=== PATIENT | male | born 1970 | race Caucasian/White ===

== ENCOUNTER 2016-08-03 02:01 | Emergency (ER) | payer OTHER, MEDICARE ==
[2016-08-03] MEDS ORDERED: IPRATROPIUM/ALBUTEROL 0.5-2.5 MG/3 ML AMPUL NEB ONE (02:27)
[2016-08-03] MEDS ORDERED: ALBUTEROL SULFATE 0.083% NEB 2.5 MG/3 ML AMPUL NEB ONE (02:27)
[2016-08-03] MEDS ORDERED: IPRATROPIUM BROMIDE 0.02% NEB 0.5 MG/2.5 ML AMPUL NEB ONE (02:27)
[2016-08-03] MEDS ORDERED: PREDNISONE 20 MG TABLET PO ONE (02:27)
[2016-08-03] MEDS ORDERED: PREDNISONE 20 MG TABLET ONE (02:28)
--- NOTE | 2016-08-03 02:33 | ER Document Report ---
ED General - General Chief Complaint: Chest Congestion Stated Complaint: Chest Congestion - HPI Patient complains to provider of: cough chest congestion Notes: Patient with a smoking history coming in for greater than 1 month of cough congestion. Patient denies fevers chills nausea vomiting night sweats weight loss. Patient states intermittent shortness of breath. Denies any recent follow-up chest x-ray her primary care - Related Data Allergies/Adverse Reactions: No Known Allergies Allergy (Unverified 04/29/11 15:49) Past Medical History - Social History Smoking Status: Unknown if Ever Smoked Family History: None - Past Medical History Cardiac Medical History: Denies: Hx Coronary Artery Disease, Hx Heart Attack, Hx Hypertension Pulmonary Medical History: Denies: Hx Asthma, Hx Bronchitis, Hx COPD, Hx Pneumonia Neurological Medical History: Denies: Hx Cerebrovascular Accident, Hx Seizures Musculoskeltal Medical History: Denies Hx Arthritis Surgical Hx: Negative Past Surgical History: Denies: Hx Pacemaker - Immunizations Hx Diphtheria, Pertussis, Tetanus Vaccination: Yes Review of Systems - Review of Systems Constitutional: No symptoms reported EENT: No symptoms reported Cardiovascular: No symptoms reported Respiratory: Cough, Short of breath, Wheezing Gastrointestinal: No symptoms reported Genitourinary: No symptoms reported Male Genitourinary: No symptoms reported Musculoskeletal: No symptoms reported Skin: No symptoms reported Hematologic/Lymphatic: No symptoms reported Neurological/Psychological: No symptoms reported -: Yes All other systems reviewed and negative Physical Exam - Vital signs Vitals: Temp Pulse Resp BP Pulse Ox 97.6 F 68 18 119/76 99 08/03/16 02:12 08/03/16 02:12 08/03/16 02:12 08/03/16 02:12 08/03/16 02:12 Interpretation: Normal - General General appearance: Appears well, Alert - HEENT Head: Normocephalic, Atraumatic Eyes: Normal Pupils: PERRL - Respiratory Respiratory status: No respiratory distress Chest status: Nontender Breath sounds: Rhonchi, Wheezing Chest palpation: Normal - Cardiovascular Rhythm: Regular Heart sounds: Normal auscultation Murmur: No - Abdominal Inspection: Normal Distension: No distension Bowel sounds: Normal Tenderness: Nontender Organomegaly: No organomegaly - Back Back: Normal, Nontender - Extremities General upper extremity: Normal inspection, Nontender, Normal color, Normal ROM , Normal temperature General lower extremity: Normal inspection, Nontender, Normal color, Normal ROM , Normal temperature, Normal weight bearing. No: Daniel's sign - Neurological Neuro grossly intact: Yes Cognition: Normal Orientation: AAOx4 Vinicius Coma Scale Eye Opening: Spontaneous Vinicius Coma Scale Verbal: Oriented Vinicius Coma Scale Motor: Obeys Commands Vinicius Coma Scale Total: 15 Speech: Normal Motor strength normal: LUE, RUE, LLE, RLE Sensory: Normal - Psychological Associated symptoms: Normal affect, Normal mood - Skin Skin Temperature: Warm Skin Moisture: Dry Skin Color: Normal Course - Re-evaluation Re-evalutation: 08/03/16 04:38 Patient's lung sounds improved after breathing treatments. Chest x-ray does not show any acute pathology. Initial read did show state acute pathology however discussed with the radiologist this was a dictation error patient has no acute pathology on his chest x-ray. Dementia be made. Patient will be discharged home patient agrees with plan steroids bronchodilators and follow-up with the [facility]. - Vital Signs Vital signs: Temp Pulse Resp BP Pulse Ox 97.6 F 68 18 119/76 99 08/03/16 02:12 08/03/16 02:12 08/03/16 02:12 08/03/16 02:12 08/03/16 02:12 Discharge - Discharge Clinical Impression: Cough, Bronchitis Condition: Good Disposition: HOME, SELF-CARE Instructions: Bronchitis With Bronchospasm (Wheezing) ([facility]), Chronic Obstructive Lung Disease ([facility]), Stop Smoking ([facility]) Additional Instructions: Please take medication as prescribed. Please use the inhaler that we gave you here in ER 2 puffs every 4 hours for the next 5 days while you're awake. After that 5 days you may use as needed. Please follow-up to primary care physician. Return to ER symptoms worsen. Prescriptions: Albuterol Sulfate [Proair HFA] 1 - 2 puff IH Q4 PRN #1 inhaler PRN Reason: Prednisone [Deltasone] 60 mg PO DAILY 5 Days Forms: Smoking Cessation Education
[2016-08-03] MEDS ORDERED: ALBUTEROL SULFATE HFA (90 MCG/PUFF) 8 GM MDI (1 MDI/ER DISP) IH ONE (04:35)
[2016-08-03 04:38] VITALS: BP 105/67
== END 2016-08-03 04:37 | disposition home or self-care (01) ==
LOC: ER 02:01
DX: J40 Bronchitis, not specified as acute or chronic (principal); R05 Cough; R09.89 Other specified symptoms and signs involving the circulatory and respiratory systems; Z87.891 Personal history of nicotine dependence; R06.02 Shortness of breath; R06.2 Wheezing
CPT/HCPCS: 94640; 99283; 71020; J7512; J3490 ×2

== ENCOUNTER 2017-02-13 10:05 | Day surgery (SDC) | payer OTHER, MEDICARE ==
[~2017-02-13 10:05] MED LIST: RINGERS SOLUTION,LACTATED 1,000 ML IV PRN
[2017-02-13] MEDS ORDERED: EPINEPHRINE INJ 30 MG/30 ML VIAL ONE (10:25)
[2017-02-13] MEDS ORDERED: MIDAZOLAM 2 MG/2 ML INJ ONE (10:25)
[2017-02-13] MEDS ORDERED: PROPOFOL INJ 200 MG/20 ML VIAL IV ONE (10:25)
[2017-02-13] MEDS ORDERED: FENTANYL CITRATE INJ/PF 100 MCG/2 ML AMPUL ONE (10:25)
[2017-02-13] MEDS ORDERED: LIDOCAINE 2%/EPINEPHRINE INJ 20 ML VIAL ONE (10:26)
[2017-02-13] MEDS ORDERED: FENTANYL CITRATE INJ/PF 100 MCG/2 ML AMPUL IV PRN ×3 (10:59)
[2017-02-13] MEDS ORDERED: DIPHENHYDRAMINE HCL 50 MG/ML VIAL IV PRN (10:59)
[2017-02-13] MEDS ORDERED: PROMETHAZINE HCL INJ 25 MG/1 ML VIAL IV PRN ×2 (10:59)
[2017-02-13] MEDS ORDERED: OXYCODONE-ACETAMINOPHEN 5-325 MG TABLET PO PRN ×2 (10:59)
[2017-02-13] MEDS ORDERED: MORPHINE SULFATE 10 MG/ML INJ IV PRN (10:59)
[2017-02-13] MEDS ORDERED: MEPERIDINE HCL/PF INJ 25 MG/1 ML DISP.SYRIN IV PRN (10:59)
[2017-02-13] MEDS ORDERED: ONDANSETRON HCL INJ/PF 4 MG/2 ML SDV IV PRN (13:08)
[2017-02-13] MEDS ORDERED: ACETAMINOPHEN 325 MG TABLET PO PRN (13:08)
[2017-02-13] MEDS ORDERED: ACETAMINOPHEN 325 MG TABLET ONE (13:08)
--- NOTE | 2017-02-13 13:09 | OPERATIVE REPORT E ---
Operative Report NAME: LINDA VILLARREAL : 1970 AGE: 46Y DATE OF SURGERY: 02/13/2017 ROOM: PREOPERATIVE DIAGNOSIS: Carcinoma of right larynx. 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 OPERATION PERFORMED: Direct laryngoscopy with suspension with microscope with multiple biopsies and photographs. SURGEON: STEW BROWNING M.D. INFORMATION SYSTEMS AUDITOR: None. ANESTHESIA: General, Dr. Krishnamurthy, with Philomena Bucio CRNA. PREOPERATIVE NOTE: This is a 46-year-old man who is an ex [employer] who has had a chronic cough and hoarseness for 7-1/2 years. 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 He is a cigarette smoker. He has a weak cough. He has a weak, somewhat gravely voice. He has no dysphagia or odynophagia. He was seen at [facility] on 01/07/2017 and a fiberoptic examination revealed multiple warty-looking growths over the right true vocal cord beginning at the vocal process of the right arytenoid and advancing forwards along the right true vocal cord up to but not onto the anterior commissure. It does not involve the ventricle as far as can be seen but there appears to be a second lesion attached to the right aryepiglottic fold. This appears to be a totally separate island. 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 This might be an HPV-related condition rather than a standard squamous cell carcinoma. However, direct endoscopy with biopsy was clearly indicated. The patient was seen and identified in the preop holding area. Discussion took place about postop care. DESCRIPTION OF PROCEDURE: The patient was then taken back to the operating room, placed in supine position, general anesthesia was induced, and a small endotracheal tube was placed. The patient was appropriately positioned into the Marissa position and draped. A time out then took place and all issues relating to the patient's identity, his positioning onto the table, the procedures to be performed, and the risks attendant thereto were discussed and there were no matters arising. A tracheostomy set was brought into the room but was not opened. Next, the patient was carefully draped. The oral exam was performed. He has rather a tight jaw. No loose teeth were identified. Bimanual palpation was unrevealing. Next, a gum shield was placed over the upper dentition. The Jako laryngoscope was then taken and advanced. Because of the tightness of the patient's oral geometry, visualization of the larynx with this instrument was quite difficult. It required lubrication of the inferior aspect of the scope with K-Y Jelly to allow it to slide over the gum shield better. Eventually a good view of the larynx was obtained. There were no additional lesions in the vallecula, on the epiglottis or on the left-hand side. The endotracheal tube was then manipulated somewhat to the right to allow the scope to enter the larynx. The [employer] suspension apparatus was then connected and utilized to attach the equipment to the [place] stand. A good view was finally obtained and then photographs were obtained using a 0-degree functional endoscopic sinus surgery Page feliciano in order to demonstrate the lesions. It seemed clear that the lesion involved the entire right true vocal cord from the vocal process forwards to the arytenoid cartilage. There was some rolling over of the lesion inferiorly below the medial edge of the right true vocal cord. The second lesion on the aryepiglottic fold was clearly demonstrated. The Zeiss operating microscope was then brought into the field with a 400-mm objective. The illumination was maintained using the Jako laryngoscope. The lesion on the aryepiglottic fold appeared to be almost pedunculated. It was, therefore, grasped with cup forceps and distracted in a medial direction, and angled Kleinsasser scissors were used to transect the stalk and then this material was handed off to the circulating nurse for transfer to the pathology department. Essentially the same technique was used on the right true vocal cord. The bulk of the lesion appeared to be placed more posteriorly and this was grasped with the cup forceps and distracted medially and then was transected using the Kleinsasser scissors. Additional pieces were removed just using cup forceps. All of this material was first of all placed on saline-soaked Telfa and then this was handed off to the circulating nurse and was finally placed on formaldehyde. Bleeding was not troublesome. Use was made of a single neuropatty soaked in 1:100,000 topical epinephrine. Following this the airway was suctioned. There had been some blood that had passed down towards the balloon of the endotracheal tube and this was all removed. There did not appear to be active bleeding from the biopsy sites. Postoperative photographs were obtained using the 0-degree Page feliciano and these were all printed. The procedure was then terminated and the anesthesia was reversed, and the Jako laryngoscope was taken out, the gum shield was removed, and the patient was extubated, light, and transferred to PACU in good condition, having tolerated the procedure well. He received 12 mg of Decadron intravenously. The biopsies were all sent down to pathology. Telephone conversation has taken place between [facility] and Dr. Hernandez in pathology to alert her to the idea that some of this material should be submitted for viral identifications if at all possible. The patient will be seen in followup at [facility] in the next week. There were no complications. No untoward events. Estimated blood loss was under 5 mL. DICTATING PHYSICIAN: STEW BROWNING M.D. [id number] PHY#: [id number] ID: [id number] JOB#: [id number] ACCT: [id number] cc:STEW BROWNING M.D. >
[2017-02-13 13:51] VITALS: BP 116/75
[2017-02-15] MEDS ORDERED: SUCCINYLCHOLINE CHLORIDE INJ 200 MG/10 ML VIAL ONE (08:26)
[2017-02-15] MEDS ORDERED: DEXAMETHASONE SOD PHOSPHATE INJ 4 MG/1 ML VIAL ONE (08:26)
== END 2017-02-13 13:35 | disposition home or self-care (01) ==
LOC: OROUT 10:05
PROVIDERS: ATTEND Otolaryngology
PROC: 0CBR8ZX Excision of Epiglottis, Via Natural or Artificial Opening Endoscopic, Diagnostic (ICD-10-PCS; 2017-02-13)
PROC: 0CBT8ZX Excision of Right Vocal Cord, Via Natural or Artificial Opening Endoscopic, Diagnostic (ICD-10-PCS; principal; 2017-02-13 13:00)
DX: C32.0 Malignant neoplasm of glottis (principal); E78.00 Pure hypercholesterolemia, unspecified; F32.9 Major depressive disorder, single episode, unspecified; F41.9 Anxiety disorder, unspecified; F17.210 Nicotine dependence, cigarettes, uncomplicated; Z79.899 Other long term (current) drug therapy
CPT/HCPCS: 88305 ×2; 31535; J2250; J0171; J3010; J2704; 320; J1100; J3490

== ENCOUNTER → 2019-01-07 | Outpatient (CLI) | payer OTHER | LOC: OD 09:27 | PROVIDERS: ATTEND Otolaryngology | DX: J30.9 Allergic rhinitis, unspecified (principal) | CPT/HCPCS: 36415; 82785; 86003 ==

== ENCOUNTER 2019-02-07 10:44 | Day surgery (SDC) | payer MEDICARE, OTHER ==
[~2019-02-07 10:44] MED LIST changes: +DEXAMETHASONE SOD PHOSPHATE INJ 4 MG/1 ML VIAL ONE; +DISPOSABLE IV ONE; +DISPOSABLE IV PRN; +FENTANYL CITRATE INJ/PF 100 MCG/2 ML AMPUL ONE; +GLYCOPYRROLATE 1 MG/5 ML VIAL ONE; +LIDOCAINE 2% INJ-PF (20 MG/ML) 2 ML AMPUL ONE; +MIDAZOLAM 2 MG/2 ML INJ ONE; +NEOSTIGMINE METHYLSULFATE 10 MG/10 ML VIAL ONE; +ONDANSETRON HCL INJ/PF 4 MG/2 ML SDV ONE; +PROPOFOL INJ 200 MG/20 ML VIAL IV ONE; -RINGERS SOLUTION,LACTATED 1,000 ML IV PRN; +ROCURONIUM BROMIDE INJ 50 MG/5 ML VIAL IV ONE; +[UNRECOGNIZED DRUG - OTHER] IV ONE; +[UNRECOGNIZED DRUG - OTHER] IV PRN
[2019-02-07] MEDS ORDERED: FENTANYL CITRATE INJ/PF 250 MCG/5 ML AMPULE ONE (13:29)
[2019-02-07] MEDS ORDERED: MIDAZOLAM 2 MG/2 ML INJ ONE (13:29)
[2019-02-07] MEDS ORDERED: PROPOFOL INJ 200 MG/20 ML VIAL IV ONE (13:29)
[2019-02-07] MEDS ORDERED: OXYMETAZOLINE HCL 0.05% NASAL SPRAY 15 ML BOTTLE ONE (13:44)
[2019-02-07] MEDS ORDERED: HYDROMORPHONE HCL INJ/PF 2 MG/ML AMPULE ONE (16:41)
[2019-02-07] MEDS ORDERED: FENTANYL CITRATE INJ/PF 100 MCG/2 ML AMPUL ONE (16:43)
[2019-02-07] MEDS ORDERED: DIPHENHYDRAMINE HCL 50 MG/ML VIAL IV PRN (17:18)
[2019-02-07] MEDS ORDERED: MORPHINE SULFATE 10 MG/ML INJ IV PRN (17:18)
[2019-02-07] MEDS ORDERED: ONDANSETRON HCL INJ/PF 4 MG/2 ML SDV IV PRN ×2 (17:18→17:25)
[2019-02-07] MEDS ORDERED: FENTANYL CITRATE INJ/PF 100 MCG/2 ML AMPUL IV PRN ×3 (17:18)
[2019-02-07] MEDS ORDERED: MEPERIDINE HCL/PF INJ 25 MG/1 ML DISP.SYRIN IV PRN (17:18)
[2019-02-07] MEDS ORDERED: PROMETHAZINE HCL INJ 25 MG/1 ML VIAL IV PRN ×2 (17:18)
[2019-02-07] MEDS ORDERED: OXYCODONE-ACETAMINOPHEN 5-325 MG TABLET PO PRN ×2 (17:18)
[2019-02-07] MEDS ORDERED: ONDANSETRON HCL INJ/PF 4 MG/2 ML SDV ONE (17:21)
[2019-02-07] MEDS ORDERED: HYDROCOD/ACETAMIN 7.5-325 MG/15 ML ORAL SOLN UDCUP PO PRN (17:25)
[2019-02-07 19:09] VITALS: BP 111/74
--- NOTE | 2019-02-23 01:00 | OPERATIVE REPORT E ---
Operative Report NAME: LINDA VILLARREAL : 1970 AGE: 48Y DATE OF SURGERY: 02/07/2019 ROOM: PREOPERATIVE DIAGNOSIS: 1. RECURRENT RESPIRATORY PAPILOMATOSIS. 2. CHRONIC DYSPHONIA. 3. SEVERE ANXIETY. POSTOPERATIVE DIAGNOSIS: 1. RECURRENT RESPIRATORY PAPILOMATOSIS. 2. CHRONIC DYSPHONIA. 3. SEVERE ANXIETY. OPERATION: 1. Microscopic direct laryngoscopy with surgical removal of laryngeal tumors. 2. Multiple sites of laryngeal injections of chemotherapeutic agent "cidofovir." 3. Intraoperative flexible fiberoptic bronchoscopy performed via/transendotracheal tube approach. SURGEON: GIANNA MONROE D.O. ANESTHESIA: General endotracheal tube. ANESTHESIA STAFF: Saima Mendoza CRNA. ESTIMATED BLOOD LOSS: 5 mL. FLUIDS: 1900 mL. COMPLICATIONS: None. DRAINS: None. SPONGE COUNT: Verified. MATERIALS FORWARDED SPECIMEN: Numerous pieces of laryngeal tumor tissue with request for rule out of laryngeal cancer, as well as HPV typing to include 6, 11, 16, 18, 31, and 33. FINDINGS: 1. There was extensive laryngeal recurrent respiratory papillomatosis disease/tissue burden extending from the supraglottic, glottic, and subglottic distribution, primarily from the right side with near complete replacement of the right true vocal fold. 2. Subglottic extension was extensive. 3. Upon flexible transendotracheal bronchoscopy there was no obvious tracheal, inocencia, or left or right main stem tracheal involvement of RRP. INDICATIONS: This is a 48-year-old white male patient who has been seen, evaluated, and followed in the [facility] office. The patient was originally seen and cared for by [facility] surgeons, who were staffing the [facility] office. The patient is with a history of severe anxiety and his area of travel consists of a 10 mile circumferential area around [place], [place]. The patient underwent prior laryngeal surgery with one of the [facility] ENT surgeons with RRP/recurrent respiratory papillomatosis, tumor burden being noted with HPV typing being requested and completed with HPV type 6 and 11 being identified. The patient was then evaluated by myself with RRP findings being noted upon office based endoscopy. The patient was encouraged to consider referral to [facility] Laryngology Department with consult being placed and efforts to find friends or family who would be able to assist the patient in getting to [facility] for evaluation and management. However, in working with the patient he reported that there was no possible way he would be able to travel outside of the local area due to his severe anxiety. After extensive discussion arrangements were made for the patient to undergo another microscopic direct laryngoscopy at [facility] with tumor removal via microscopic direct laryngoscopy, HPV typing would again be requested and tumor sent for rule out of laryngeal cancer, and cidofovir injections would be performed. All of which he voiced an understanding of and was in agreement with. The risk and complications of all the procedures were discussed in detail with the patient. He voiced an understanding of the described surgical plan, agreed to proceed, and consent was obtained. PROCEDURE: The patient was taken to the main operating room and was placed on the operating room table in the supine position. Appropriate monitors were placed. Using mask and IV access general anesthesia was induced. The patient was transorally intubated without difficulty and the Anesthesia staff reported that they saw extensive laryngeal tumor present. The patient next had his lips, teeth, tongue, and gum evaluated with no gross defect being noted. There was a mouth guard placed over the upper teeth. The rigid laryngoscope was next introduced and placed into position and the patient was placed into indirect suspension. The Page feliciano was used for medical photography. At this point the microscope was brought into positive and extensive laryngeal tumor was removed and sent for pathology evaluation as noted above. At this point the laryngeal end worker microdebrider system was set up and at a setting of 500 RPM the remaining laryngeal RRP tumor burden was removed with suction debridement. There were 2 areas of brisk bright red bleeding at the right true vocal fold/ tumor area which were controlled with Afrin soaked neuro patties and laryngeal cautery. At this point there was reasonable resection of the laryngeal RRP tumor burden. The findings were as noted above. At this point cidofovir at a concentration of 7.5 mg/mL were injected throughout the right supraglottic, glottic, and subglottic area. After the resection of the RRP tumor burden there was additional medical photography completed with a rigid Page feliciano. The patient was then released from indirect suspension and the rigid laryngoscope was removed. There had been adequate hemostasis noted. The mouth guard was removed and there was no damaged to the lips, teeth, tongue, gums, or inside of the mouth noted. At this point the patient underwent flexible fiberoptic bronchoscopy via the endotracheal tube with findings as noted above. The patient was then returned to the Anesthesia staff and was allowed to emerge from general anesthesia. The patient was extubated in the main operating room and was then transported to the postanesthesia recovery unit in stable condition. There were no complications. DICTATING PHYSICIAN: GIANNA MONROE D.O. [id number] PHY#: [id number] ID: [id number] JOB#: [id number] ACCT: [id number] cc:GIANNA MONROE D.O. >
== END 2019-02-07 18:55 | disposition home or self-care (01) ==
LOC: OROUT 10:44
PROVIDERS: ATTEND Otolaryngology
DX: D14.1 Benign neoplasm of larynx (principal); J38.3 Other diseases of vocal cords; F41.8 Other specified anxiety disorders; R49.0 Dysphonia; J30.9 Allergic rhinitis, unspecified; J33.9 Nasal polyp, unspecified; C32.0 Malignant neoplasm of glottis; J34.89 Other specified disorders of nose and nasal sinuses; J34.1 Cyst and mucocele of nose and nasal sinus; J34.3 Hypertrophy of nasal turbinates; E07.9 Disorder of thyroid, unspecified; E78.00 Pure hypercholesterolemia, unspecified; F17.210 Nicotine dependence, cigarettes, uncomplicated; K21.9 Gastro-esophageal reflux disease without esophagitis; R06.09 Other forms of dyspnea; Z79.899 Other long term (current) drug therapy
CPT/HCPCS: 88305 ×2; 00320; 31599; 31622; A4649; J2250; J3490 ×5; J1100; J3010; J2710; J2405; J2704; J0740; 320; J1170

== ENCOUNTER 2019-04-10 18:34 | Emergency (ER) | payer OTHER ==
--- NOTE | 2019-04-10 19:08 | ER Document Report ---
ED Medical Screen (RME) - General Stated Complaint: TOE LACERATION Time Seen by Provider: 04/10/19 19:02 Primary Care Provider: LIBBY RUSSELL [Primary Care Provider] - Follow up as needed Mode of Arrival: Ambulatory Information source: Patient Notes: Patient presents to the emergency department with a laceration to his left great toe. Patient reports he was cutting with an ax when he hit his foot. He reports he was wearing shoes. Reports tetanus is up-to-date. No active bleeding PE. Patient has a large laceration approximately 3 cm deep to his left great toe. Patient is able to flex extend his toe without problems good cap refill. I have greeted and performed a rapid initial assessment of this patient. A comprehensive ED assessment and evaluation of the patient, analysis of test results and completion of the medical decision making process will be conducted by additional ED providers. Dictation of this chart was performed using voice recognition software; therefore, there may be some unintended grammatical errors. TRAVEL OUTSIDE OF THE [place] IN LAST 30 DAYS: No - Related Data Allergies/Adverse Reactions: No Known Allergies Allergy (Verified 04/10/19 19:01) Past Medical History - Past Medical History Cardiac Medical History: Denies: Hx Coronary Artery Disease, Hx Heart Attack, Hx Hypertension Pulmonary Medical History: Denies: Hx Asthma - denies, Hx Bronchitis, Hx COPD, Hx Pneumonia Neurological Medical History: Denies: Hx Cerebrovascular Accident, Hx Seizures Musculoskeltal Medical History: Denies Hx Arthritis Past Surgical History: Denies: Hx Pacemaker - Immunizations Hx Diphtheria, Pertussis, Tetanus Vaccination: Yes Doctor's Discharge - Discharge [facility]errals: [facility] - Follow up as needed
--- NOTE | 2019-04-10 19:57 | RADIOLOGY REPORT (SQ) ---
EXAM DESCRIPTION: FOOT LEFT 2 VIEWS COMPLETED DATE/TIME: 04/10/2019 7:32 pm REASON FOR STUDY: laceration left great toe COMPARISON: None. EXAM PARAMETERS: NUMBER OF VIEWS: Two view. TECHNIQUE: AP and lateral radiographic images acquired of the left foot. LIMITATIONS: None. FINDINGS: MINERALIZATION: Normal. BONES: Intra-articular nondisplaced fracture of the lateral base of the distal phalanx of the left gr eat toe as well as the medial articular surface of the proximal phalanx. There is adjacent soft tissue swelling -laceration. No radiopaque foreign body. OTHER: No other significant finding. IMPRESSION: Intra-articular nondisplaced fracture of the lateral base of the distal phalanx of the left great toe as well as the medial articular surface of the proximal phalanx.There is adjacent soft tissue swelling -laceration. No radiopaque foreign body. TECHNICAL DOCUMENTATION: JOB ID: [id number] [place]-[id number] 2010 [employer]- All Rights Reserved Reading location - IP/workstation name: [email or web address]
[2019-04-10] MEDS ORDERED: LIDOCAINE 1% INJ-PF (10 MG/ML) 30 ML SDV INJ ONE (20:54)
--- NOTE | 2019-04-10 20:55 | ER Document Report ---
HPI - HPI Time Seen by Provider: 04/10/19 19:02 Pain Level: 2 Notes: Patient is an otherwise healthy 48-year-old male presenting to the emergency department with concern for laceration and pain to his left great toe. Patient reports he was cutting some dania with an ax when the accident through his shoe and into his foot. He reports Tdap within the last 5 years. There is mild bleeding at this time. - DERM Skin Color: Normal Past Medical History - General Information source: Patient - Social History Smoking Status: Current Every Day Smoker Chew tobacco use (# tins/day): No Drug Abuse: None Family History: None Patient has suicidal ideation: No Patient has homicidal ideation: No - Medical History Medical History: Negative Surgical Hx: Negative - Immunizations Hx Diphtheria, Pertussis, Tetanus Vaccination: Yes Hx Pneumococcal Vaccination: 04/19/14 Vertical Provider Document - CONSTITUTIONAL Notes: PHYSICAL EXAMINATION: GENERAL: Well-appearing, well-nourished and in no acute distress. HEAD: Atraumatic, normocephalic. EYES: Pupils equal round extraocular movements intact, conjunctiva are normal. ENT: Nares patent NECK: Normal range of motion LUNGS: No respiratory distress Musculoskeletal: Normal range of motion NEUROLOGICAL: Normal speech, normal gait. PSYCH: Normal mood, normal affect. SKIN: 3 cm laceration over the dorsal surface of the left great toe, this is deep, this does well approximate. There is mild active bleeding noted. Cap refill is less than 3 seconds and patient has normal motor and sensation distal to area of injury. - INFECTION CONTROL TRAVEL OUTSIDE OF THE [place] IN LAST 30 DAYS: No Course - Re-evaluation Re-evalutation: Foot X-Ray 04/10/19 19:06 IMPRESSION: Intra-articular nondisplaced fracture of the lateral base of the distal phalanx of the left great toe as well as the medial articular surface of the proximal phalanx.There is adjacent soft tissue swelling -laceration. No radiopaque foreign body. As outlined above and radiology reports patient does have a fracture to the distal phalanx as well as the proximal phalanx. There is no radiopaque foreign body. Wound will be copiously irrigated. Wound will then be loosely approximated to allow for drainage. Patient will be started on antibiotics. Patient will be instructed to follow-up with orthopedics as well. The patient's emergency department workup and current diagnosis were explained to the patient and or family. Follow-up instructions were provided. Medications if prescribed were discussed. Instructions for when to return to the emergency department including specific worrisome symptoms were discussed with the patient and/or family. Procedures - Laceration/Wound Repair Left great toe Wound length (cm): 3 Wound's Depth, Shape: Irregular. No: Nail-avulsed Laceration pre-procedure: Sterile PPE donned Anesthetic type: 1% Lidocaine Volume Anesthetic (mLs): 3 Wound explored: Clean Irrigated w/ Saline (mLs): 800 Wound Repaired With: Sutures Suture Size/Type: 4:0, Nylon Number of Sutures: 4 - Loosley approximated Post-procedure wound care: Sterile dressing applied Post-procedure NV exam normal: Yes Complications: No Discharge - Discharge Clinical Impression: Laceration Fracture of left great toe Qualifiers: Encounter type: initial encounter Fracture type: open Phalanx: unspecified phalanx Fracture alignment: nondisplaced Qualified Code(s): S92.405B - Nondisplaced unspecified fracture of left great toe, initial encounter for open fracture Condition: Stable Disposition: HOME, SELF-CARE Additional Instructions: Laceration Care Your laceration has been sutured to keep the skin edges aligned during healing. The time of suture removal depends on the nature and location of your cut. Please follow the care instructions the doctor has outlined for you and return for further care, according to the schedule you've been given. Keep the wound and dressing clean. Unless you were told otherwise, you may shower daily, blotting the wound dry with a clean, unused towel. At other times, If the dressing gets wet or blood soaked, remove it and blot the wound dry, then reapply a new dressing. Unless you were instructed otherwise, dressings should be changed at least daily. If any signs of infection occur (swelling, redness, increasing tenderness, red streaks, tender lumps in the armpit or groin above the laceration, or fever), see the doctor immediately. Fractured Toe You have fractured your toe. Although this fracture doesn't need a cast or splint, emergency evaluation was needed to assess the straightness of the bones and joints. Reduction ("setting") is necessary for toe fractures which are crooked or twisted. A toe fracture will heal in about three weeks. Usually, the fractured toe is taped to the next toe. The second toe acts as a moving splint to protect the broken one. Ice and elevation help during the first 48 hours. You may need crutches at first if walking is painful. When you begin walking, be careful NOT to do things that hurt. If weight bearing is not comfortable within a few days, you may require a special shoe, walking boot, or cast. Call the doctor or return at once if severe swelling, severe pain, or numbness develop in the toe, or if you suspect you may have re-injured it. Please call orthopedics tomorrow to schedule a follow-up appointment. Let them know you are seen in the emergency department and had an open fracture to your toe. Please return to the emergency department or your primary care provider in 10-14 days for suture removal. Please return earlier if you develop any signs of infection such as increased redness, swelling, foul-smelling drainage or fever. Prescriptions: Cephalexin [Cephalexin 500 MG Tablet] 1 tab PO BID #14 tablet Referrals: [facility] [Primary [facility] Provider] - Follow up as needed MILTON PARISI DO [ACTIVE STAFF] - Follow up as needed
[2019-04-10 23:14] VITALS: BP 119/77
== END 2019-04-10 22:55 | disposition home or self-care (01) ==
LOC: ER 18:34
DX: S92.415B Nondisplaced fracture of proximal phalanx of left great toe, initial encounter for open fracture (principal); S92.425B Nondisplaced fracture of distal phalanx of left great toe, initial encounter for open fracture; W27.0XXA Contact with workbench tool, initial encounter; Y93.89 Activity, other specified; F17.200 Nicotine dependence, unspecified, uncomplicated
CPT/HCPCS: 99282

== ENCOUNTER → 2019-10-05 | Outpatient (CLI) | payer OTHER ==
--- NOTE | 2019-10-05 11:25 | RADIOLOGY REPORT (SQ) ---
EXAM DESCRIPTION: CT SINUSES FOR ENT COMPLETED DATE/TIME: 10/05/2019 8:55 am REASON FOR STUDY: J32.9 CHRONIC SINUSITIS, UNSPECIFIED J32.9 CHRONIC SINUSITIS, UNSPECIFIED COMPARISON: None. TECHNIQUE: Noncontrast scanning through the paranasal sinuses using bone algorithm. Reconstructed MPR images reviewed. All images stored on PACS. All CT scanners at this facility use dose modulation, iterative reconstruction, and/or weight based d osing when appropriate to reduce radiation dose to as low as reasonably achievable (ALARA). [facility]: Dose Right [facility]: CareDose [facility]: Dose Right [facility]: Teradose 4D [facility]: [employer] RADIATION DOSE: 48mGy. LIMITATIONS: None. FINDINGS: Right sinuses and drainage pathways: Post-surgical changes: Old bony defect anterior wall right maxillary sinus axial image 114. Surgical widening of the right maxillary outlet.Resected middle turbinate. Frontal sinus: Circumferential mucous membrane thickening Frontoethmoidal Recess: Opacified/occluded by mucous membrane thickening on sagittal image 141-145 Anterior Ethmoid Sinuses: Opacified with mucous membrane thickening Posterior Ethmoid Sinuses: Mild mucous membrane thickening Sphenoid Sinus: Circumferential mucous membrane thickening Sphenoethmoidal Recess: Opacified with mucous membrane thickening Maxillary Sinus: Near completely opacified with mucous membrane thickening Ostiomeatal Complex: Occluded by mucous membrane thickening. Left Sinuses and Drainage Pathways: Post-Surgical Changes: Old bony defect anterior wall left maxillary sinus axial image 109 -114. Mattie gical widening of the left maxillary outlet. Resection of the anterior mid and posterior left ethmoi d septa. Resected middle turbinate. Frontal Sinus: Normal. Frontoethmoidal Recess: Mucous membrane thickening without occlusion Anterior Ethmoid Sinuses: Mucous membrane thickening Posterior Ethmoid Sinuses: Mucous membrane thickening Sphenoid Sinus: Circumferential mucous membrane thickening Sphenoethmoidal Recess: Opacified by mucous membrane thickening Maxillary Sinus: Mild circumferential mucous membrane thickening Ostiomeatal Complex: Narrowed by mucous membrane thickening on coronal image 107 Right Olfactory Fossa: No polyps. Left Olfactory Fossa: No polyps. Middle Turbinate Sugar Bullosa: No. Paradoxical Middle Turbinate: No. Atelectatic Uncinated Process: No. Frontal Sherry Cell Type I: Bilateral Frontal Sherry Cell Type II: Bilateral Interfrontal Sinus Septal Cell: None. Supra-Orbital Ethmoid: Bilateral Frontal Bullar Cell: None. Suprabullar Bullar Cell: None. Sphenoethmoidal (Onodi) Cell: Bilateral Pneumatization of the Anterior Clinoid Processes: No Hypoplastic Maxillary Sinus: None. Osteoneogenesis: Along the sphenoid sinus Bone Dehiscence:Anterior pérez bilateral maxillary sinus Nasal Cavity: Normal. Nasal Septum: Mild rightward nasal septal deviation Anatomic Variants: Right Vidian Canal: Normal. Left Vidian Canal: Normal. Advanced multiple dental caries IMPRESSION: CHRONIC SINUSITIS. TECHNICAL DOCUMENTATION: JOB ID: [id number] Quality ID # [id number]: Final reports with documentation of one or more dose reduction techniques (e.g., Au tomated exposure control, adjustment of the mA and/or kV according to patient size, use of iterative reconstruction technique) 2010 [email or web address]- All Rights Reserved Reading location - IP/workstation name: [id number]
== END ==
LOC: RAD 08:45
PROVIDERS: ATTEND Otolaryngology
DX: J32.9 Chronic sinusitis, unspecified (principal)
CPT/HCPCS: 70486

== ENCOUNTER 2020-04-09 07:57 | Day surgery (SDC) | payer OTHER ==
[~2020-04-09 07:57] MED LIST changes: -DEXAMETHASONE SOD PHOSPHATE INJ 4 MG/1 ML VIAL ONE; -DISPOSABLE IV ONE; -DISPOSABLE IV PRN; -FENTANYL CITRATE INJ/PF 100 MCG/2 ML AMPUL ONE; -GLYCOPYRROLATE 1 MG/5 ML VIAL ONE; +LACTATED RINGERS 1000 ML IV PRN; +LIDOCAINE 0.5% INJ-PF (5 MG/ML) 50 ML SDV SUBCUT PRN; -LIDOCAINE 2% INJ-PF (20 MG/ML) 2 ML AMPUL ONE; -MIDAZOLAM 2 MG/2 ML INJ ONE; -NEOSTIGMINE METHYLSULFATE 10 MG/10 ML VIAL ONE; -ONDANSETRON HCL INJ/PF 4 MG/2 ML SDV ONE; -PROPOFOL INJ 200 MG/20 ML VIAL IV ONE; -ROCURONIUM BROMIDE INJ 50 MG/5 ML VIAL IV ONE; -[UNRECOGNIZED DRUG - OTHER] IV ONE; -[UNRECOGNIZED DRUG - OTHER] IV PRN
[2020-04-09] MEDS ORDERED: DEXAMETHASONE SOD PHOSPHATE INJ 4 MG/1 ML VIAL ONE ×3 (08:18→11:18)
[2020-04-09] MEDS ORDERED: ROCURONIUM BROMIDE INJ 50 MG/5 ML VIAL IV ONE (08:18)
[2020-04-09] MEDS ORDERED: ONDANSETRON HCL INJ/PF 4 MG/2 ML SDV ONE (08:18)
[2020-04-09] MEDS ORDERED: NEOSTIGMINE METHYLSULFATE 10 MG/10 ML VIAL ONE (08:18)
[2020-04-09] MEDS ORDERED: KETOROLAC TROMETHAMINE 60 MG/2 ML SDV ONE (08:18)
[2020-04-09] MEDS ORDERED: LIDOCAINE 2% INJ-PF (20 MG/ML) 2 ML AMPUL ONE (08:18)
[2020-04-09] MEDS ORDERED: GLYCOPYRROLATE 1 MG/5 ML VIAL ONE (08:18)
[2020-04-09] MEDS ORDERED: MIDAZOLAM 2 MG/2 ML INJ ONE (11:09)
[2020-04-09] MEDS ORDERED: FENTANYL CITRATE INJ/PF 100 MCG/2 ML AMPUL ONE (11:09)
[2020-04-09] MEDS ORDERED: EPHEDRINE SULFATE INJ 50 MG/1 ML AMPULE ONE (11:09)
[2020-04-09] MEDS ORDERED: PROPOFOL INJ 200 MG/20 ML VIAL IV ONE (11:10)
[2020-04-09] MEDS ORDERED: OXYMETAZOLINE HCL 0.05% NASAL SPRAY 15 ML BOTTLE ONE (11:16)
[2020-04-09] MEDS ORDERED: DISPOSABLE IV PRN (11:29)
[2020-04-09] MEDS ORDERED: [UNRECOGNIZED DRUG - OTHER] IV PRN (11:29)
[2020-04-09] MEDS ORDERED: FENTANYL CITRATE INJ/PF 100 MCG/2 ML AMPUL IV PRN ×3 (12:33)
[2020-04-09] MEDS ORDERED: ONDANSETRON HCL INJ/PF 4 MG/2 ML SDV IV PRN ×2 (12:33→14:51)
[2020-04-09] MEDS ORDERED: MORPHINE SULFATE 10 MG/ML INJ IV PRN (12:33)
[2020-04-09] MEDS ORDERED: MEPERIDINE HCL/PF INJ 25 MG/1 ML DISP.SYRIN IV PRN (12:33)
[2020-04-09] MEDS ORDERED: DIPHENHYDRAMINE HCL 50 MG/ML VIAL IV PRN (12:33)
[2020-04-09] MEDS ORDERED: OXYCODONE-ACETAMINOPHEN 5-325 MG TABLET PO PRN ×2 (12:33)
[2020-04-09] MEDS ORDERED: PROMETHAZINE HCL INJ 25 MG/1 ML VIAL IV PRN ×2 (12:33)
[2020-04-09] MEDS ORDERED: HYDROCODONE/ACETAMINOPHEN 5-325 MG TABLET PO PRN (14:50)
[2020-04-09 16:12] VITALS: BP 115/70
--- NOTE | 2020-04-18 22:12 | Operative Report ---
Operative Report-[facility] Operative Report: DATE OF OPERATION: April 09, 2020 PREOPERATIVE DIAGNOSIS: 1. Recurrent respiratory papillomatosis/RRP 2. Chronic dysphonia 3. Severe anxiety POSTOPERATIVE DIAGNOSIS: 1. Recurrent respiratory papillomatosis/RRP 2. Chronic dysphonia 3. Severe anxiety PROCEDURE: 1. Microscopic direct laryngoscopy with surgical excision/removal of right vocal cord laryngeal tumors/recurrent respiratory papillomatosis 2. Microscopic direct laryngoscopy with surgical excision/removal of laryngeal aspect of epiglottis laryngeal tumors/recurrent respiratory papillomatosis X 2 locations 3. Multiple sites of laryngeal injections of chemotherapeutic agent "Cidofovir" 4. Intraoperative flexible fiberoptic bronchoscopy performed via a transnasal approach prior to intubation Primary Surgeon of Record: Dr. Reece Munroe HOP GROWER: None Anesthesia Staff: ALEN Grewal ANESTHESIA: General Endotracheal Tube Anesthesia DRAINS: None SPONGE COUNT: Verified Needle Count: N/A SPECIMEN/MATERIALS FORWARD TO THE LAB: 1. Numerous biopsy/excisional specimens of laryngeal tumors from the above noted locations with request for rule out of laryngeal cancer as well as HPV typing to include 6, 11, 16, 18, 31, and 33. ESTIMATED BLOOD LOSS: 10 mL IV FLUIDS: 1300 mL COMPLICATIONS: None Findings: 1. There were extensive laryngeal RRP/recurrent respiratory papillomatosis disease/tissue burden extending from noted at 2 locations of the laryngeal epiglottis one superior location and one inferior location. The third location was the right true vocal cord and surrounding immediate area. 2. Flexible fiberoptic endoscopy/bronchoscopy with the above areas of concern noted, limited right vocal cord subglottic extension and not beyond. The trachea, inocencia, and left and right mainstem bronchus were widely patent with no disease/lesions and were otherwise unremarkable in appearance. INDICATIONS: This is a 49-year-old white male patient who has been seen and evaluated and followed in the [facility] office. The patient had last been to the for similar reasons and similar surgery in February 2019. He has reported over the course of this past year that he has done reasonably well until more recently when he has noted his voice becoming more hoarse and office-based flexible endoscopy as noted the above RRP type findings. There was once again extensive discussion with the patient who due to his severe anxiety and inability to travel beyond a 10 mile radius of the [facility] again desired to remain in the local area receiving care through [facility] and [facility] versus traveling to [facility] or [facility]. Recommendation and plan as before was to proceed to the main operating room for microscopic direct laryngoscopy and excision/removal of the multi focus RRP lesions, intraoperative endoscopic evaluation, and administration of cidofovir at all affected locations all of which he again voiced an understanding of and desired to proceed with. He voiced an understanding of the described surgical plan, were in agreement, and consent was obtained. DESCRIPTION OF OPERATIVE PROCEDURE: The patient was taken to the main operating room and was placed on the operating room table in the supine position. Appropriate monitors were placed. Using mask and IV access general anesthesia was induced. Prior to intubation the patient underwent transnasal flexible endoscopy of the upper airway, laryngeal area, true vocal cords, subglottic area, trachea, inocencia, and left and right mainstem bronchus. The patient was next transorally intubated without difficulty. The table was then rotated 90 and the patient was positioned and prepped for upper airway and laryngeal endoscopy and surgery. The lips, teeth, tongue, and gums were inspected and noted to be without defect. There was a mouthguard placed over the upper teeth. The rigid laryngoscope was next introduced and placed into indirect suspension on the [place] stand. At this point the microscope was brought into position and extensive laryngeal tumor was excised from the 3 above mentioned locations first with numerous biopsies being taken for permanent pathology evaluation and HPV typing followed by use of the laryngeal airplane tube builder blade and a setting of 1500 RPM to remove a larger extent of RRP tumor burden. There was also a suction trap utilized to collect specimen for permanent pathology evaluation. Bleeding was managed with laryngeal suction cautery without difficulty. Once complete mary ann ofovir at a concentration of 7.5 mg/mL was injected throughout the areas of concern. At this point the patient was released from indirect suspension and the rigid laryngoscope was removed. There had been adequate hemostasis noted. The mouthguard was removed and there was no damage to the lips, teeth, tongue, or gums noted. The patient was then returned to the anesthesia staff and was allowed to emerge from general anesthesia. The patient was extubated in the operating room and was transported to the post anesthesia recovery unit in stable condition. There were no complications.
== END 2020-04-09 15:30 | disposition home or self-care (01) ==
LOC: OROUT 07:57
PROVIDERS: ATTEND Otolaryngology
DX: D14.1 Benign neoplasm of larynx (principal); R49.0 Dysphonia; F41.9 Anxiety disorder, unspecified; J32.9 Chronic sinusitis, unspecified; J30.9 Allergic rhinitis, unspecified; J33.9 Nasal polyp, unspecified; J34.89 Other specified disorders of nose and nasal sinuses; J34.1 Cyst and mucocele of nose and nasal sinus; J34.3 Hypertrophy of nasal turbinates; K21.9 Gastro-esophageal reflux disease without esophagitis; R06.09 Other forms of dyspnea; F32.9 Major depressive disorder, single episode, unspecified; E07.9 Disorder of thyroid, unspecified; F17.210 Nicotine dependence, cigarettes, uncomplicated; Z79.899 Other long term (current) drug therapy; Z79.890 Hormone replacement therapy; Z03.818 Encounter for observation for suspected exposure to other biological agents ruled out
CPT/HCPCS: 87635; 88305 ×2; 00320; 31541; 31571; 31622; J2250; J3490 ×5; J1100; J1885; J3010; J2710; J2405; J2704; J0740; C9803; 320

== ENCOUNTER → 2020-08-15 | Outpatient (CLI) | payer OTHER ==
--- NOTE | 2020-08-16 11:27 | RADIOLOGY REPORT (SQ) ---
EXAM DESCRIPTION: CT SINUSES FOR ENT IMAGES COMPLETED DATE/TIME: 08/15/2020 1:03 pm REASON FOR STUDY: (J33.8)OTHER POLYP OF SINUS J33.8 OTHER POLYP OF SINUS COMPARISON: CT sinuses 10/05/2019 TECHNIQUE: Noncontrast scanning through the paranasal sinuses using bone algorithm. Reconstructed MPR images reviewed. All images stored on PACS. All CT scanners at this facility use dose modulation, iterative reconstruction, and/or weight based d osing when appropriate to reduce radiation dose to as low as reasonably achievable (ALARA). [facility]: Dose Right [facility]: CareDose [facility]: Dose Right [facility]: Teradose 4D [facility]: [employer] RADIATION DOSE: 47mGy. LIMITATIONS: None. FINDINGS: Right sinuses and drainage pathways: Post-surgical changes: Bony dehiscence anterior wall right maxillary sinus, question prior surgery. Partial resection medial wall right maxillary sinus, resected middle right turbinate. Frontal sinus: Near completely opacified. Hyperdense dried secretions Frontoethmoidal Recess: Opacified Anterior Ethmoid Sinuses: Opacified Posterior Ethmoid Sinuses: Partially opacified Sphenoid Sinus: Opacified Sphenoethmoidal Recess: Opacified Maxillary Sinus: Mucous membrane thickening along the medial wall and right maxillary outlet Ostiomeatal Complex: Patent on coronal image 103 Left Sinuses and Drainage Pathways: Post-Surgical Changes: Partial resection medial wall left maxillary sinus. Small bony defect anteri or wall left maxillary sinus. Resected left middle turbinate. Frontal Sinus: Partially opacified. Hyperdense secretions present Frontoethmoidal Recess: Opacified Anterior Ethmoid Sinuses: Opacified Posterior Ethmoid Sinuses: Opacified Sphenoid Sinus: Opacified Sphenoethmoidal Recess: Opacified Maxillary Sinus: Mucous membrane thickening medial wall left maxillary sinus Ostiomeatal Complex: Opacified with mucous membrane thickening coronal images 94-104 Right Olfactory Fossa: There are multiple subcentimeter polyps present throughout the right nasal ca vity Left Olfactory Fossa: There are multiple subcentimeter polyps present throughout the left nasal cavi ty Middle Turbinate Sugar Bullosa: Surgically absent bilaterally Paradoxical Middle Turbinate: No. Atelectatic Uncinated Process: No. Frontal Sherry Cell Type I: Bilateral Frontal Sherry Cell Type II: No. Interfrontal Sinus Septal Cell: None. Supra-Orbital Ethmoid: None. Frontal Bullar Cell: None. Suprabullar Bullar Cell: None. Sphenoethmoidal (Onodi) Cell: None. Pneumatization of the Anterior Clinoid Processes: No Hypoplastic Maxillary Sinus: None. Osteoneogenesis: None. Bone Dehiscence:None. Nasal Cavity: Normal. Nasal Septum: Rightward nasal septal deviation Anatomic Variants: Right Vidian Canal: Normal. Left Vidian Canal: Normal. IMPRESSION: Diffuse chronic inflammatory change, progressive since 10/05/2019 TECHNICAL DOCUMENTATION: JOB ID: [id number] Quality ID # [id number]: Final reports with documentation of one or more dose reduction techniques (e.g., Au tomated exposure control, adjustment of the mA and/or kV according to patient size, use of iterative reconstruction technique) 2010 [employer]- All Rights Reserved Reading location - IP/workstation name: [id number]
== END ==
LOC: RAD 12:42
PROVIDERS: ATTEND Otolaryngology
DX: J33.8 Other polyp of sinus (principal)
CPT/HCPCS: 70486